=== PATIENT | male | born 1990 | race African-American/Black ===

== ENCOUNTER 2016-10-26 04:25 | Emergency (ER) | payer OTHER ==
[2016-10-26] MEDS ORDERED: ASPIRIN 81 MG TABLET, CHEWABLE PO ONE (04:50)
[2016-10-26 05:12] LABS: ABSOLUTE BASOPHILS # (AUTO) 0.1 10^3/uL (0.0-0.2); ABSOLUTE EOSINOPHILS # (AUTO) 0.2 10^3/uL (0.0-0.6); ABSOLUTE LYMPHOCYTES (AUTO) 2.4 10^3/uL (0.5-4.7); ABSOLUTE MONOCYTES (AUTO) 0.7 10^3/uL (0.1-1.4); ABSOLUTE NEUT (AUTO) 3.9 10^3/uL (1.7-8.2); BASOPHILS % (AUTO) 0.9 % (0-2); EOSINOPHILS % (AUTO) 2.9 % (0-6); HEMATOCRIT 45.2 % (37.9-51.0); HEMOGLOBIN 14.9 g/dL (13.5-17.0); HGB HCT DIFFERENCE -0.5; LYMPHOCYTES % (AUTO) 33.2 % (13-45); MEAN CORPUSCULAR HEMOGLOBIN 30.2 pg (27.0-33.4); MEAN CORPUSCULAR HGB CONC 32.9 g/dL (32.0-36.0); MEAN CORPUSCULAR VOLUME 92 fl (80-97); MONOCYTES % (AUTO) 9.4 % (3-13); RED BLOOD COUNT 4.92 10^6/uL (4.35-5.55); RED CELL DISTRIBUTION WIDTH 13.9 % (11.5-14.0); SEGMENTED NEUTROPHILS % (AUTO) 53.6 % (42-78); WHITE BLOOD COUNT 7.2 10^3/uL (4.0-10.5)
[2016-10-26 05:29] LABS: ALANINE AMINOTRANSFERASE 31 U/L (21-72); ALBUMIN 4.5 g/dL (3.5-5.0); ALKALINE PHOSPHATASE 66 U/L (38-126); ANION GAP 13 (5-19); ASPARTATE AMINO TRANSFERASE 30 U/L (17-59); BILIRUBIN,TOTAL 0.6 mg/dL (0.2-1.3); BLOOD UREA NITROGEN 17 mg/dL (7-20); CALCIUM 9.6 mg/dL (8.4-10.2); CARBON DIOXIDE 29 mmol/L (22-30); CHLORIDE 103 mmol/L (98-107); CREATINE KINASE 188 U/L (55-170); CREATININE RESULT 1.21 mg/dL (0.52-1.25); GLUCOSE 83 mg/dL (75-110); POTASSIUM 4.1 mmol/L (3.6-5.0); SODIUM 144.7 mmol/L (137-145); TOTAL PROTEIN 8.2 g/dL (6.3-8.2)
[2016-10-26 05:41] LABS: CREATINE KINASE MB 0.94 ng/mL (<4.55)
[2016-10-26 05:42] LABS: TROPONIN I < 0.012 ng/mL
--- NOTE | 2016-10-26 06:09 | ER Document Report ---
ED General <KAMILLE BASSETT - Last Filed: 10/26/16 06:45> - General Mode of Arrival: Ambulatory Information source: Patient TRAVEL OUTSIDE OF THE [place] IN LAST 30 DAYS: No - HPI Patient complains to provider of: Chest Pain Onset: Other - 10/24/2016 Onset/Duration: Sudden Associated symptoms: None Exacerbated by: Other - Prone, bending forward, moving arm across body Relieved by: Supine <LI ELLIS - Last Filed: 10/26/16 13:32> - General Chief Complaint: Chest Pain Stated Complaint: CHEST PAIN Notes: Patient is a 26-year-old male presenting to the emergency department with concerns of chest pain onset 10/24/2016. Patient describes the pain as a sharp pressure that comes and goes, but frequently wakes him up from his sleep. Patient states that laying on his back improves the pain, but bending over, reaching his arm across his body, and laying on his stomach exacerbates it. Patient's mother states that patient moved heavy furniture approximately 2 weeks ago. Patient denies cough or any other recent illness. (LI ELLIS) - Related Data Allergies/Adverse Reactions: No Known Allergies Allergy (Verified 10/26/16 04:38) Past Medical History - General Information source: Patient - Social History Smoking Status: Never Smoker Chew tobacco use (# tins/day): No Frequency of alcohol use: Occasional Drug Abuse: None Lives with: Family Family History: Reviewed & Not Pertinent Patient has suicidal ideation: No Patient has homicidal ideation: No - Past Medical History Cardiac Medical History: Denies: Hx Hypercholesterolemia, Hx Hypertension Renal/ Medical History: Denies: Hx Peritoneal Dialysis Surgical Hx: Negative <LI ELLIS - Last Filed: 10/26/16 13:32> Review of Systems - Review of Systems -: Yes ROS unobtainable due to patient's medical condition Constitutional: No symptoms reported EENT: No symptoms reported Cardiovascular: See HPI, Chest pain Respiratory: No symptoms reported Gastrointestinal: No symptoms reported Genitourinary: No symptoms reported Male Genitourinary: No symptoms reported Musculoskeletal: No symptoms reported Skin: No symptoms reported Hematologic/Lymphatic: No symptoms reported Neurological/Psychological: No symptoms reported -: Yes All other systems reviewed and negative <LI ELLIS - Last Filed: 10/26/16 13:32> Physical Exam - Vital signs Interpretation: Normal - General General appearance: Appears well, Alert - HEENT Head: Normocephalic, Atraumatic Eyes: Normal Pupils: PERRL - Respiratory Respiratory status: No respiratory distress Chest status: Tender - Tender to palpation over left costochondral cartilage and sternum. Breath sounds: Normal Chest palpation: Normal - Cardiovascular Rhythm: Regular Heart sounds: Normal auscultation Murmur: No - Abdominal Inspection: Normal - Back Back: Normal, Nontender - Extremities General upper extremity: Normal inspection General lower extremity: Normal inspection - Neurological Neuro grossly intact: Yes Cognition: Normal Orientation: AAOx4 [place] Coma Scale Eye Opening: Spontaneous [place] Coma Scale Verbal: Oriented [place] Coma Scale Motor: Obeys Commands [place] Coma Scale Total: 15 Speech: Normal - Psychological Associated symptoms: Normal affect, Normal mood - Skin Skin Temperature: Warm Skin Moisture: Dry Skin Color: Normal <LI ELLIS - Last Filed: 10/26/16 13:32> - Vital signs Vitals: Temp Pulse Resp BP Pulse Ox 98.1 F 64 16 126/74 H 99 10/26/16 04:39 10/26/16 04:39 10/26/16 04:39 10/26/16 04:39 10/26/16 04:39 (KAMILLE BASSETT) (LI ELLIS) Course - Laboratory Result Diagrams: 10/26/16 04:58 10/26/16 04:58 - Diagnostic Test Radiology reviewed: Image reviewed, Reports reviewed - Chest x-ray is unremarkable - EKG Interpretation by Ks EKG shows normal: Sinus rhythm, [place], Intervals, QRS Complexes, ST-T Waves Rate: Normal - 59 Rhythm: NSR [place]/QRS: IVCD Voltage: Consistant with LVH P Waves: LAE <KAMILLE BASSETT - Last Filed: 10/26/16 06:45> - Laboratory Result Diagrams: 10/26/16 04:58 10/26/16 04:58 <LI ELLIS - Last Filed: 10/26/16 13:32> - Vital Signs Vital signs: Temp Pulse Resp BP Pulse Ox 98.2 F 64 20 116/84 99 10/26/16 05:01 10/26/16 04:39 10/26/16 06:30 10/26/16 06:30 10/26/16 06:30 (KAMILLE BASSETT) (LI ELLIS) - Laboratory Laboratory results interpreted by me: 10/26/16 04:58 Creatine Kinase 188 H (KAMILLE BASSETT) (LI ELLIS) Discharge <KAMILLE BASSETT - Last Filed: 10/26/16 06:45> <LI ELLIS - Last Filed: 10/26/16 13:32> - Discharge Clinical Impression: Anterior chest wall pain Condition: Stable Disposition: HOME, SELF-CARE Additional Instructions: Chest Wall Pain: Your chest pain has been diagnosed as coming from the chest wall. This is often caused by straining the muscles or joints in the chest during physical activity, direct trauma, coughing, or vigorous vomiting. Persons with arthritis are especially prone to this type of pain, due to inflammation of the cartilage joints near the breast bone. Occasionally, no cause can be found. Rest from strenuous physical activity. This kind of chest pain is usually made worse by movement of the chest. Depending on the symptoms, we may prescribe medicine for pain, muscle relaxation, and antiinflammatory effects. If the pain is new, and seems to be due to muscle strain, cold packs can help. Otherwise, apply gentle warmth to the painful area for 15 minutes every hour or two. You should contact the doctor immediately if things change. Further evaluation is needed if you develop a fever or cough, if the nature of the pain changes, or if you become short of breath. TAKE MOTRIN OR ALEVE FOR PAIN NEEDED. REST. AVOID ACTIVITY THAT CAUSES PAIN. TRY MOIST HEAT APPLICATIONS. FOLLOW UP WITH A LOCAL MEDICAL DOCTOR IF NOT IMPROVING OVER THE NEXT SEVERAL DAYS. RETURN TO THE EMERGENCY ROOM IF ANY NEW OR WORSENING SYMPTOMS. Forms: Return to Work Scribe Attestation: 10/26/16 06:32 I personally performed the services described in the documentation, reviewed and edited the documentation which was dictated to the scribe in my presence, and it accurately records my words and actions. (KAMILLE BASSETT) Scribe Documentation - Scribe Written by Jaimeiblindsey:: Li Ellis 10/26/2016 [id number] acting as scribe for :: Kristen <LI ELLIS - Last Filed: 10/26/16 13:32>
[2016-10-26] MEDS ORDERED: KETOROLAC TROMETHAMINE INJ/PF 30 MG/1 ML SDV IV ONE (06:18)
[2016-10-26 06:58] VITALS: BP 116/84
--- NOTE | 2016-10-27 15:18 | EKG REPORT ---
SEVERITY:- ABNORMAL ECG - SINUS RHYTHM PROBABLE LEFT ATRIAL ABNORMALITY NONSPECIFIC INTRAVENTRICULAR CONDUCTION DELAY LEFT VENTRICULAR HYPERTROPHY : Confirmed by: Karen Carey MD 27-Oct-2016 15:18:03
== END 2016-10-26 07:06 | disposition home or self-care (01) ==
LOC: EDBD 04:25 → ER 04:25
DX: R07.89 Other chest pain (principal)
CPT/HCPCS: 93005; 99285; 96374; 36415; 82553; 82550; 85025; 80053; 84484; 71010; 93010; J1885